=== PATIENT | male | born 1995 | race Hispanic/Latino ===

== ENCOUNTER 2021-09-23 04:01 | Emergency (ER) | payer SELFPAY ==
[2021-09-23] VITALS (14 sets, daily range): BP systolic 106–121; BP diastolic 59–79; PULSE 66–85; RESP 12–25; TEMP 36.1–36.6; O2SAT 95–99
--- NOTE | ~2021-09-23 | CT_ITS ---
EXAMINATION: CT abdomen pelvis w con DATE: 09/23/2021 05:44 INDICATION: Fall from ladder abdominal trauma.. Right upper quadrant abdominal pain. TECHNIQUE: Computed tomography (CT) of the abdomen and pelvis was performed with 100 CC Omnipaque 300 intravenous contrast. Automated exposure control and iterative reconstruction technique were employe d. Exam dose: 217.86 mGy-cm total exam DLP. COMPARISON: None. FINDINGS: The lung bases are clear. Normal heart size. No pericardial or pleural effusion. The liver, gallbladder, bile ducts, spleen, pancreas, pancreatic duct, and adrenal glands and kidneys are unremarkable. No visceral space-occupying mass lesion or laceration is noted. No urinary tract c alculus or hydroureteronephrosis. Normal caliber of the abdominal aorta. No intraperitoneal or retroperitoneal or pelvic mass lesion or adenopathy or ascites. Normal appendix. No bowel obstruction or free air. Probable bone island of S1. No fracture or bone destruction is detected. IMPRESSION: No evidence of visceral laceration or abnormal intra-abdominal free fluid or other signi ficant abdominal or pelvic abnormality Reviewed, dictated and finalized at [facility]. Reviewed, dictated and finalized at [facility]. IMPRESSION: No evidence of visceral laceration or abnormal intra-abdominal ursula e fluid or other significant abdominal or pelvic abnormality
--- NOTE | ~2021-09-23 | CT_ITS ---
EXAMINATION: CT brain wo con DATE: 09/23/2021 05:43 INDICATION: Fall. Head injury. TECHNIQUE: Computed tomography (CT) of the head was performed without intravenous contrast. The mA wa s adjusted according to patient size. Iterative reconstruction technique was employed. Exam dose: 60 5.33 mGy-cm total exam DLP. COMPARISON: None FINDINGS: Left vertebral artery and right carotid siphon internal carotid artery calcifications are n oted, earlier than expected for a 25-year-old patient. Consider diabetes. No intracranial mass lesion or hemorrhage, midline shift or mass effect. Normal ventricular size. Nor [place]-white matter differentiation. No subdural or epidural hematoma. Mastoid air cells and included paranasal sinuses are unremarkable. No fracture or bone destruction of the cranial vault. IMPRESSION: Cerebral atherosclerotic calcifications in a 25-year-old; consider diabetes No acute intracranial finding Reviewed, dictated and finalized at [facility] Reviewed, dictated and finalized at [facility].
--- NOTE | 2021-09-23 04:08 | PC.NURSE ---
pt unable to provide pharmacy at this time.
[2021-09-23] MEDS: ONDANSETRON INJ 4 MG/2 ML VIAL IV PUSH (04:47)
[2021-09-23] MEDS: MORPHINE SULFATE (*CRX) 4 MG/ML INJ IV PUSH (04:48)
[2021-09-23 04:56] LABS: Basophils Percent Auto 0.5 % (0.2-1.2); Eosinophils Percent Auto 0.6 % (0-4.4); Hematocrit 42.4 % (42.0-52.0); Hemoglobin 14.3 g/dL (14.0-18.0); Immature Granulocyte Absolute 0.02 K/mm3 (0.00-0.031); Immature Granulocyte Percent A 0.3 % (0-0.5); Lymphocytes Absolute Auto 2.61 K/mm3 (0.9-3.2); Lymphocytes Percent Auto 41.2 % (18.3-44.2); Mean Corpuscular HGB Conc 33.7 g/dl (32-36); Mean Corpuscular Hemoglobin 29.2 pg (26-34); Mean Corpuscular Volume 86.7 fl (80-100); Monocytes Absolute Auto 0.3 K/mm3 (0.1-0.6); Monocytes Percent Auto 5.1 % (2.6-8.5); Neutrophils Absolute Auto 3.3 K/mm3 (1.3-6.7); Neutrophils Percent Auto 52.3 % (45.5-73.1); Platelet Count Result 352 k/mm3 (150-375); Red Blood Count 4.89 M/mm3 (4.6-6.20); Red Cell Distribution Width 12.7 % (11.5-14.5); White Blood Count 6.3 K/mm3 (4.5-10.0)
[2021-09-23 05:09] LABS: Alanine Aminotransferase 32 U/L (6-50); Albumin Level 4.4 g/dL (3.5-5.1); Alkaline Phosphatase 77 U/L (38-126); Anion Gap 10 mmol/L (8-16); Aspartate Amino Transferase 29 U/L (17-59); Bilirubin,Total 0.1 mg/dL (0.2-1.3); Blood Urea Nitrogen 7 mg/dL (9-20); Calcium 8.5 mg/dL (8.4-10.2); Carbon Dioxide 26 mmol/L (22-30); Chloride 107 mmol/L (98-107); Estimated CRCL calculation 97 ml/min; Estimated Glomerular Filt Rate > 60; Glucose 117 mg/dL (65-110); Lipase 97 U/L (23-300); Potassium 3.4 mmol/L (3.4-5.0); Sodium 143 mmol/L (137-145)
[2021-09-23 05:10] LABS: INR 1.1; Prothrombin Time 13.6 Seconds (11.1-14.7)
[2021-09-23 05:11] LABS: Partial Thromboplastin Time 26.4 SECONDS (22.3-36.8)
--- NOTE | 2021-09-23 05:23 | PC.NURSE ---
Patient taken to CT via stretcher.
--- NOTE | 2021-09-23 05:48 | ED.FALL ---
HPI - Fall General Chief Complaint: Fall Stated Complaint: fell off a ladder Time Seen by Provider: 09/23/21 04:11 History of Present Illness HPI Narrative: Patient is a 25-year-old male who presents ER for evaluation after a fall. Patient fell 4 days ago off of a ladder. He fell 10 feet landing on his head. No loss of consciousness. He reports he has been feeling off and has been having nausea and vomiting since then. No aggravating factors. No alleviating factors. He does have mild headache. No change in vision or hearing. He reports he is recently had some blood in his vomit which takes up about half the volume of his emesis. Bright red. Last emesis was 7 PM with bright red blood. No dark black stools. No fevers or chills or sweats. Patient also reports some upper abdominal pain is unsure if it is related to the fall. Right upper quadrant. Guarding. Related Data Allergies Allergy/AdvReac Type Severity Reaction Status Date / Time No Known Allergies Allergy Verified 09/23/21 04:08 Review of Systems Review of Systems: All systems reviewed & are unremarkable except as noted in HPI and below Constitutional: Constitutional: Denies chills, Reports fatigue and Denies fever(s) ENT: Denies nasal congestion and Denies sore throat Cardiovascular: Cardiovascular: Denies chest pain and Denies rapid heart rate Gastrointestinal: Gastrointestinal: Reports abdominal pain, Reports nausea and Reports vomiting Neurologic: Denies syncope, Reports headache(s), Denies focal weakness and Denies numbness PMFSH Past Medical History Medical History (Updated 09/23/21 @ 06:48 by Harsha Contreras MD) Healthy adult male Surgical History Surgical History (Updated 09/23/21 @ 05:50 by Harsha Contreras MD) No pertinent past surgical history Social History Social History (Updated 09/23/21 @ 05:50 by Harsha Contreras MD) Smoking status: Never smoker Exam Narrative: GENERAL: Well-appearing, well-nourished, and in no acute distress. HEAD: Normocephalic, atraumatic. Healing laceration right frontal scalp that appears to have been superficial. EYES: PERRL and EOMI. ENT: Mucous membranes moist. CHEST: Clear to auscultation. No respiratory distress. HEART: Regular rate and rhythm. Normal peripheral pulses. ABDOMEN: Soft, tender palpation upper quadrant with guarding, nondistended. EXTREMITIES: Normal range of motion. No edema. SKIN: Warm, dry, no rash. NEURO: Alert and oriented x3. Clear speech. PSYCH: Normal mood and affect. Course Course Emergency Course: Using child caregiver services patient has been informed of his imaging results, specifically the retrocerebellar CSF space. I have recommended he follow-up with the on-call PCP for further evaluation and possible MRI just for complete evaluation since he has not been told about this intracranial variant. Reports he has never had a CT scan in his life. Patient has requested handwritten prescriptions for pain and nausea at home which will be provided. Vital Signs Vital signs: Vital Signs Temperature 97.0 F L 09/23/21 04:02 Pulse Rate 78 09/23/21 04:02 Respiratory Rate 18 09/23/21 04:02 Blood Pressure 112/79 09/23/21 04:02 Pulse Oximetry 98 09/23/21 04:02 Oxygen Delivery Room Air 09/23/21 04:02 Temperature 97.0 F L 09/23/21 04:02 Pulse Rate 69 09/23/21 06:30 Respiratory Rate 19 09/23/21 06:30 Blood Pressure 121/72 09/23/21 05:42 Pulse Oximetry 96 09/23/21 06:30 Oxygen Delivery Room Air 09/23/21 04:02 MDM - Fall Lab Data Result diagrams: 09/23/21 04:32 09/23/21 04:32 Labs: Lab Results 09/23/21 09/23/21 09/23/21 Range/Units 04:32 04:32 04:32 WBC 6.3 (4.5-10.0) K/mm3 RBC 4.89 (4.6-6.20) M/mm3 Hgb 14.3 (14.0-18.0) g/dL Hct 42.4 (42.0-52.0) % MCV 86.7 (80-100) fl MCH 29.2 (26-34) pg MCHC 33.7 (32-36) g/dl RDW 12.7 (11.5-14.5) % Plt Count
== END 2021-09-23 07:02 | disposition home or self-care (01) ==
PROVIDERS: Emergency Provider Emergency Medicine
DX: S06.0X0A Concussion without loss of consciousness, initial encounter (principal); W11.XXXA Fall on and from ladder, initial encounter
CPT/HCPCS: 36415; 70450; 74177; 80053; 83690; 85025; 85610; 85730; 96374; 96375; 99284; J2270; J2405; Q9967

== ENCOUNTER 2022-02-28 10:32 | Emergency (ER) | payer OTHER, SELFPAY ==
[2022-02-28] VITALS (9 sets, daily range): BP systolic 105–127; BP diastolic 60–85; PULSE 72–88; RESP 14–18; TEMP 37.1; O2SAT 99–100
--- NOTE | ~2022-02-28 | CT_ITS ---
EXAMINATION: CT abdomen pelvis w con DATE: 02/28/2022 13:06 INDICATION: Left lower quadrant abdominal pain for 4 months, worsening today. Nausea, vomiting, diarr hea. TECHNIQUE: Computed tomography (CT) of the abdomen and pelvis was performed with 100 CC Omnipaque 350 intravenous contrast. Automated exposure control and iterative reconstruction technique were employe d. Exam dose: 189.17 mGy-cm total exam DLP. COMPARISON: 09/23/2021 CT abdomen pelvis FINDINGS: The lung bases are clear. Normal heart size. No pericardial or pleural effusion. The liver, gallbladder, bile ducts, spleen, pancreas, pancreatic duct, and adrenal glands and kidneys appear normal. Normal caliber of the abdominal aorta. No intraperitoneal or retroperitoneal or pelvic mass lesion or adenopathy or ascites. The urinary bladder and prostate gland are unremarkable. Normal appendix. There are some scattered small bowel air-fluid levels but no bowel obstruction, gene l wall thickening, pneumatosis or intraperitoneal free air is detected. Left S1 probable bone island, stable since 09/23/2021. No suspicious osteolytic or osteoblastic lesion s are noted otherwise. IMPRESSION: Scattered nondilated small bowel segments with air-fluid levels, which may be due to ent eritis or mild adynamic ileus. No bowel obstruction or free air Normal appendix Reviewed, dictated and finalized at [facility]. Reviewed, dictated and finalized at [facility] [employer] IMPRESSION: Scattered nondilated small bowel segments with air-fluid levels, w hich may be due to enteritis or mild adynamic ileus. No bowel obstruction or fr ee air Normal appendix
[2022-02-28 10:59] LABS: Basophils Percent Auto 0.7 % (0.2-1.2); Eosinophils Percent Auto 0.2 % (0-4.4); Hematocrit 46.3 % (42.0-52.0); Hemoglobin 15.8 g/dL (14.0-18.0); Immature Granulocyte Absolute 0.01 K/mm3 (0.00-0.031); Immature Granulocyte Percent A 0.2 % (0-0.5); Lymphocytes Absolute Auto 1.32 K/mm3 (0.9-3.2); Lymphocytes Percent Auto 22.6 % (18.3-44.2); Mean Corpuscular HGB Conc 34.1 g/dl (32-36); Mean Corpuscular Volume 87.9 fl (80-100); Monocytes Absolute Auto 0.8 K/mm3 (0.1-0.6); Neutrophils Absolute Auto 3.7 K/mm3 (1.3-6.7); Neutrophils Percent Auto 63.3 % (45.5-73.1); Platelet Count Result 248 k/mm3 (150-375); Red Blood Count 5.27 M/mm3 (4.6-6.20); Red Cell Distribution Width 12.5 % (11.5-14.5); White Blood Count 5.8 K/mm3 (4.5-10.0)
[2022-02-28 11:13] LABS: Alanine Aminotransferase 28 U/L (6-50); Albumin Level 4.8 g/dL (3.5-5.1); Alkaline Phosphatase 68 U/L (38-126); Anion Gap 11 mmol/L (8-16); Aspartate Amino Transferase 36 U/L (17-59); Bilirubin,Total 0.8 mg/dL (0.2-1.3); Blood Urea Nitrogen 15 mg/dL (9-20); Calcium 9.1 mg/dL (8.4-10.2); Carbon Dioxide 24 mmol/L (22-30); Chloride 102 mmol/L (98-107); Estimated Glomerular Filt Rate > 60; Glucose 122 mg/dL (65-110); Lipase 102 U/L (23-300); Potassium 3.5 mmol/L (3.4-5.0); Sodium 137 mmol/L (137-145)
[2022-02-28 12:30] LABS: Appearance Urine Clear (Clear); Bilirubin Urine 1+ (Negative); Blood Urine Negative (Negative); Color Urine Yellow (Yellow); Glucose Urine UA Negative (Negative); Ketones Urine Trace mg/dL (Negative); Leukocyte Esterase Ur Negative LEU/UL (Negative); Nitrate Urine Negative (Negative); Protein Urine 1+ mg/dL (Negative); Specific Grav Ur 1.025 (1.001-1.035)
[2022-02-28 12:38] LABS: Mucus Urine Rare /lpf; RBC Urine 0-2 /hpf (0-2); WBC Urine 0-3 /hpf
[2022-02-28 12:50] LABS: Add Urine Microscopic? YES
[2022-02-28] MEDS: MORPHINE SULFATE (*CRX) 4 MG/ML INJ IV PUSH (12:50)
[2022-02-28] MEDS: SODIUM CHLORIDE 0.9% IV 1,000 ML 999 ML IV CONT (12:51)
[2022-02-28] MEDS: ONDANSETRON INJ 4 MG/2 ML VIAL IV PUSH (12:51)
--- NOTE | 2022-02-28 13:37 | ED.ABDPAIN ---
HPI - Abdominal Pain General Chief Complaint: Abdominal Pain Stated Complaint: LLQ pain Time Seen by Provider: 02/28/22 12:27 History of Present Illness HPI narrative: Patient is a 26-year-old male who presents ER with lower abdominal pain. Located in left lower quadrant. Sharp. Nonradiating. Worsening over the last week. Associated with diarrhea that occurs 3-4 times a day. No blood in the stool. He has some mild nausea no vomiting. No known sick contacts. Concerned he may has appendicitis. Related Data Allergies Allergy/AdvReac Type Severity Reaction Status Date / Time No Known Allergies Allergy Verified 09/23/21 04:08 Review of Systems Review of Systems: All systems reviewed & are unremarkable except as noted in HPI and below Constitutional: Constitutional: Denies chills and Denies fever(s) ENT: Denies nasal congestion and Denies sore throat Cardiovascular: Cardiovascular: Denies chest pain, Denies rapid heart rate and Denies radiating jaw, neck or arm pain Respiratory: Respiratory: Denies cough and Denies dyspnea Gastrointestinal: Gastrointestinal: Reports abdominal pain, Reports diarrhea, Reports nausea and Denies vomiting Genitourinary: Genitourinary: Denies dysuria and Denies testicular pain PMFSH Past Medical History Medical History (Updated 02/28/22 @ 15:31 by Harsha Contreras MD) Healthy adult male Surgical History Surgical History (Updated 09/23/21 @ 05:50 by Harsha Contreras MD) No pertinent past surgical history Social History Social History (Updated 02/28/22 @ 13:39 by Harsha Contreras MD) Smoking status: Current every day smoker Exam Narrative: GENERAL: Well-appearing, well-nourished, and in no acute distress. HEAD: Normocephalic, atraumatic. EYES: PERRL and EOMI. ENT: Mucous membranes moist. NECK: Supple. CHEST: Clear to auscultation. No respiratory distress. HEART: Regular rate and rhythm. Normal peripheral pulses. ABDOMEN: Soft, tender palpation left lower quadrant without guarding, nondistended, normal active bowel sounds. EXTREMITIES: Normal range of motion. No edema. NEURO: Alert and oriented x3. PSYCH: Normal mood and affect. Course Vital Signs Vital signs: Vital Signs Temperature 98.7 F 02/28/22 10:51 Pulse Rate 88 02/28/22 10:51 Respiratory Rate 14 02/28/22 10:51 Blood Pressure 113/61 02/28/22 10:51 Pulse Oximetry 100 02/28/22 10:51 Oxygen Delivery Room Air 02/28/22 10:51 Temperature 98.7 F 02/28/22 10:51 Pulse Rate 73 02/28/22 13:43 Respiratory Rate 16 02/28/22 13:43 Blood Pressure 127/83 02/28/22 13:43 Pulse Oximetry 100 02/28/22 13:43 Oxygen Delivery Room Air 02/28/22 10:51 MDM - Abdominal Pain Lab Data Result diagrams: 02/28/22 10:54 02/28/22 10:54 Labs: Lab Results 02/28/22 02/28/22 02/28/22 Range/Units 10:54 10:54 12:19 WBC 5.8 (4.5-10.0) K/mm3 RBC 5.27 (4.6-6.20) M/mm3 Hgb 15.8 (14.0-18.0) g/dL Hct 46.3 (42.0-52.0) % MCV 87.9 (80-100) fl MCH 30.0 (26-34) pg MCHC 34.1 (32-36) g/dl RDW 12.5 (11.5-14.5) % Plt Count 248 (150-375) k/mm3 MPV 9.0 (7.4-10.4) fl Immature Gran % (Auto) 0.2 (0-0.5) % Neut % (Auto) 63.3 (45.5-73.1) % Lymph % (Auto) 22.6 (18.3-44.2) % [place] % (Auto) 13.0 H (2.6-8.5) % Eos % (Auto) 0.2 (0-4.4) % Baso % (Auto) 0.7 (0.2-1.2) % Lymph # (Auto) 1.32 (0.9-3.2) K/mm3 [place] # (Auto) 0.8 H (0.1-0.6) K/mm3 Eos # (Auto) 0.0 (0-0.3) K/mm3 Baso # (Auto) 0.0 (0.0-0.1) K/mm3 Abs Immat Gran (auto) 0.01 (0.00-0.031) K/mm3 Absolute Neuts (auto) 3.7 (1.3-6.7) K/mm3 Absolute Nucleated RBC 0.0 (0.0-0.012) K/mm3 Nucleated RBC % 0.0 (0.0-0.2) % Sodium 137 (137-145) mmol/L Potassium 3.5 (3.4-5.0) mmol/L Chloride 102 (98-107) mmol/L Carbon Dioxide 24 (22-30) mmol/L Anion Gap 11 (8-16) mmol/L BUN 15 D (9-
== END 2022-02-28 16:13 | disposition home or self-care (01) ==
PROVIDERS: Emergency Medicine; Emergency Provider Emergency Medicine
DX: K52.9 Noninfective gastroenteritis and colitis, unspecified (principal); F17.200 Nicotine dependence, unspecified, uncomplicated
CPT/HCPCS: 36415; 74177; 80053; 81001; 83690; 85025; 96361; 96374; 96375; 99284; 99285; J2270; J2405; J7030; Q9967